=== PATIENT | female | born 1955 | race Caucasian/White ===

== ENCOUNTER 2022-03-11 11:10 | Emergency (ER) | payer MEDICARE, OTHER, SELFPAY ==
[2022-03-11 11:32] VITALS: BP 149/104; PULSE 98; RESP 18; TEMP 36.2; O2SAT 95; BMI 38.3
--- NOTE | 2022-03-11 12:15 | PC.NURSE ---
Dr Manzo to room
--- NOTE | 2022-03-11 12:23 | XR_ITS ---
Final Report Patient: OLGA PAGAN Facility:?[facility] Patient ID:?[id number] Site Patient ID:?[id number]. Site :?[id number] Study:?XRay Knee Right 3 VIEW-03/11/2022 12:56:52 PM Ordering Physician:?Jovany Toledo Final Report: Indication: Pain after twisting injury. Technique: Three views. Comparison: None. Findings/Impression: No fracture or malalignment. No large joint effusion. Small medial proximal tibia osteochondroma. Mild to moderate osteoarthritis with mild patellofemoral joint space narrowing and small tricompartmental osteophytes. Dictated by Mamadou Soria MD @ 03/11/2022 1:00:41 PM (Electronic Signature)
--- NOTE | 2022-03-11 12:26 | ED.LOWEXIN ---
HPI - Extremity Injury (Lower) General Time Seen by Provider: 12:25 Date Seen: 03/11/22 Chief Complaint: Extremity Pain/Injury, Lower Stated Complaint: Twisted Right knee Time Seen by Provider: 03/11/22 11:18 Source: patient Mode of arrival: ambulatory History of Present Illness HPI Narrative: The patient is a 66-year-old female who has chronic pain, reports that she twisted her right knee recently and has had some lateral pain to her knee. No marked swelling. Does have a walker she has been using. Patient denies marked swelling of the knee as mention and no other injuries reported. No redness or warmth of the knee. No lower extremity injury prior or skin injury. MD complaint: knee injury Injury: Right: knee Type of Injury: other (She twisted her knee) Severity: moderate Relieving factors: rest Related Data Home Medications Medication Instructions Recorded Confirmed albuterol sulfate 2.5 mg/3 mL mg 03/11/22 (0.083 %) solution for nebulization albuterol sulfate 90 mcg/actuation INHALATION 03/11/22 aerosol inhaler (Ventolin HFA) atorvastatin 20 mg tablet mg 03/11/22 bupropion HCl 300 mg 24 hr tablet, mg PO 03/11/22 extended release famotidine 20 mg tablet mg 03/11/22 fluticasone 250 mcg-salmeterol 50 INHALATION 03/11/22 mcg/dose blistr powdr for inhalation (Advair Diskus) fluticasone propionate 50 INTRANASAL 03/11/22 mcg/actuation nasal spray,suspension hydrochlorothiazide 25 mg tablet mg 03/11/22 hydrocodone 10 mg-acetaminophen tab 03/11/22 325 mg tablet paroxetine HCl 30 mg tablet mg PO 03/11/22 thyroid (pork) 30 mg tablet mg 03/11/22 ([place] Thyroid) tizanidine 4 mg tablet mg 03/11/22 Allergies Allergy/AdvReac Type Severity Reaction Status Date / Time No Known Drug Allergies Allergy Verified 03/11/22 11:29 Review of Systems Narrative: Review of systems is negative for cardiopulmonary GI neurologic skin other mentioned above. Exam Narrative: Exam Narrative: Patient's right knee shows no effusion no suprapatellar fluid of significance but a little bit of swelling laterally she has no in unstable knee with negative anterior posterior drawer no media no varus or valgus stress pain. No joint line pain Const: Vital Signs, click to edit/add: Vital Signs - 24 hr 03/11/22 11:32 Temperature 97.2 F L Pulse Rate [Right Pulse Oximeter] 98 Respiratory Rate 18 Blood Pressure [Ri ght Upper Arm] 149/104 H Pulse Oximetry 95 Course Course Hospital Course: Patient will get an x-ray of her right knee; Addendum: The patient's knee x-ray by my read shows degenerative changes but no acute fracture. She can continue use her walker, use some Advil or Aleve as needed, continue home pain medications, recommend icing to the knee. Update her regular physician within next 2-3 days and follow up as needed. Vital Signs Vital signs: Initial Vital Signs Temperature 97.2 F L 03/11/22 11:32 Temperature Source Temporal Artery Scan 03/11/22 11:32 Pulse Rate 98 03/11/22 11:32 Respiratory Rate 18 03/11/22 11:32 Blood Pressure 149/104 H 03/11/22 11:32 Blood Pressure Mean 119 03/11/22 11:32 Blood Pressure Position Standing 03/11/22 11:32 Pulse Oximetry 95 03/11/22 11:32 Oxygen Delivery Method 03/11/22 11:32 Vital Signs Temperature 97.2 F L 03/11/22 11:32 Pulse Rate 98 03/11/22 11:32 Respiratory Rate 18 03/11/22 11:32 Blood Pressure 149/104 H 03/11/22 11:32 Pulse Oximetry 95 03/11/22 11:32 Temperature 97.2 F L 03/11/22 11:32 Pulse Rate 98 03/11/22 11:32 Respiratory Rate 18 03/11/22 11:32 Blood Pressure 149/104 H 03/11/22 11:32 Pulse Oximetry 95 03/11/22 11:32 Discharge Plan Discharge Clinical Impression: Knee sprain Patient Disposition: Home, Self-Care Condition: Stable Additional Instructions: Continues walker, ice the knee 3 times a day for about 10 minutes of time. Diminished weight-bearing over the next few days. May take an Advil or Aleve as needed in addition to regular medications. She is on chronic narcotics. Recheck with regular doctor with an update in about 3 days, perhaps early next week Activity Level: Weight Bearing as Tolerated Activity Detail: Would limit weight-bearing Discharge Diet: Regular Prescriptions: No Action fluticasone propion-salmeterol [Advair Diskus] 250-50 mcg/dose blister with device INHALATION 0RF Label Comments: INHALE 1 PUFF BY MOUTH TWICE DAILY atorvastatin 20 mg tablet 0RF albuterol sulfate 2.5 mg /3 mL (0.083 %) solution for nebulization 0RF Label Comments: INHALE 1 VIAL VIA A NEBULIZER EVERY 4 HOURS NEEDED FOR COUGH OF SHORTNESS OF BREATH tizanidine 4 mg tablet 0RF hydrocodone-acetaminophen 10-325 mg tablet 0RF Label Comments: TAKE 1 TABLET BY MOUTH TWICE DAILY NEEDED FOR CHRONIC PAIN. MAX ACETAMINOPHEN 4000 MG IN 24 HOURS famotidine 20 mg tablet 0RF paroxetine HCl 30 mg tablet PO 0RF hydrochlorothiazide 25 mg tablet 0RF albuterol sulfate [Ventolin HFA] 90 mcg/actuation HFA aerosol inhaler INHALATION 0RF Label Comments: INHALE 2 PUFFS BY MOUTH EVERY 4 HOURS NEEDED FOR SHORTNESS OF BREATH fluticasone propionate 50 mcg/actuation spray,suspension INTRANASAL 0RF Label Comments: SHAKE LIQUID AND USE 2 SPRAYS IN EACH NOSTRIL EVERY DAY bupropion HCl 300 mg tablet extended release 24 hr PO 0RF thyroid (pork) [[place] Thyroid] 30 mg tablet 0RF Follow Up/Referrals: Provider,Not a Local [Primary Care Provider] - Stand Alone Forms: [employer] Info Instructions
--- NOTE | 2022-03-11 12:40 | PC.NURSE ---
pt back from imaging
--- NOTE | 2022-03-11 13:50 | PC.NURSE ---
discharge instructions reviewed, pt verbalizes understanding, will follow up with primary as needed
== END 2022-03-11 13:50 | disposition home or self-care (01) ==
LOC: ED 13:41
PROVIDERS: Emergency Provider Family Medicine
DX: S83.91XA Sprain of unspecified site of right knee, initial encounter (principal); X50.1XXA Overexertion from prolonged static or awkward postures, initial encounter
CPT/HCPCS: 73562; 99283

== ENCOUNTER 2022-04-02 06:24 | Day surgery (SDC) | payer OTHER, SELFPAY ==
[2022-04-02] VITALS (9 sets, daily range): BP systolic 143–159; BP diastolic 80–109; PULSE 84–94; RESP 16–87; TEMP 36.1–36.2; O2SAT 94–97; BMI 39.3
[2022-04-02] MEDS: CEFAZOLIN 2 GM INJ IVP (07:07)
[2022-04-02] MEDS: lidocaine HCL 2 % MULTIDOSE 20 ML VIAL 7 ML INJECTION (07:25)
[2022-04-02] MEDS: BUPIVACAINE 0.5% 30 ML 5 ML INJECTION (07:25)
--- NOTE | 2022-04-02 07:53 | P.ORPRC_ITS ---
Procedure Note Date of procedure: 04/02/22 Procedure: Preop diagnosis: Left upper extremity carpal tunnel syndrome Postop diagnosis: Left upper extremity carpal tunnel syndrome Procedure: Left upper extremity carpal tunnel release Anesthesia: Local Surgeon: Dillan Lopez MD academic affairs assistant: MALA Mccarthy EBL: 5 mL Complications: None Specimens: None Drains: None Indications: The patient has a history of left upper extremity carpal tunnel syndrome symptoms. Despite appropriate nonoperative management consisting of nighttime bracing and occupational therapy they continue to have symptoms. Operative intervention was recommended. The risks, benefits alternatives and expected outcomes were discussed in detail. These included but were not limited to: Infection, bleeding, injury to blood vessel or nerve, venous thromboembolism. All questions were answered to their satisfaction. The patient was placed supine on the operating room table. Local anesthesia was established with 0.5% Marcaine without epinephrine and 2% lidocaine without epinephrine. The hand was prepped and draped in usual sterile fashion. The limb was elevated the forearm pneumatic tourniquet was inflated to 250 mm of mercury. A longitudinal incision was made centered over the radial border of the ring f kapil at the base of the palm. Subcutaneous dissection was sharply taken through the palmar fascia and the palmaris brevis to the transverse carpal ligament. The ligament was divided in line with the incision. Proximal and distal dissection was carried with tenotomy and Metzenbaum scissors for a wide decompression of the carpal tunnel. The tourniquet was released, bleeding was controlled with direct pressure. The wound was closed with a 3-0 nylon. A bulky dry dressing was applied, sponge and needle counts were correct x 2. The patient tolerated the procedure well, there were no apparent complications. They were sent to same day surgery in satisfactory condition. Plan: Use of the hand as tolerates. Discontinue the intraoperative dressing on postoperative day 3 and may get the wound wet as tolerates. Follow up in the office in 2 weeks for a wound check and suture removal.
== END 2022-04-02 08:26 | disposition home or self-care (01) ==
PROVIDERS: PCP Physician Assistant; Visit Provider Orthopaedic Surgery
PROC: (CPT 64721; principal; 2022-04-02 07:00)
DX: G56.02 Carpal tunnel syndrome, left upper limb (principal)
CPT/HCPCS: 64721; J0690; J3490